=== PATIENT | female | born 1995 | race African-American/Black ===

== ENCOUNTER → 2017-06-15 | Outpatient (CLI) | payer MEDICAID ==
[~2017-06-15] MED LIST: MACR100C2 PO; PREN1CHW7 PO; PREN1MIS11 PO
== END ==
LOC: HPND 10:24
PROVIDERS: ATTEND Obstetrics & Gynecology
DX: O26.892 Other specified pregnancy related conditions, second trimester (principal); R10.31 Right lower quadrant pain; D27.0 Benign neoplasm of right ovary; N94.9 Unspecified condition associated with female genital organs and menstrual cycle; O99.212 Obesity complicating pregnancy, second trimester; E66.9 Obesity, unspecified; Z68.33 Body mass index [BMI] 33.0-33.9, adult; Z3A.18 18 weeks gestation of pregnancy
CPT/HCPCS: 76805

== ENCOUNTER → 2017-07-14 | Outpatient (CLI) | payer MEDICAID | LOC: HPND 12:32 | PROVIDERS: ATTEND Obstetrics & Gynecology | DX: O26.892 Other specified pregnancy related conditions, second trimester (principal); O99.212 Obesity complicating pregnancy, second trimester; E66.9 Obesity, unspecified; Z68.34 Body mass index [BMI] 34.0-34.9, adult | CPT/HCPCS: 76811; 76817 ==

== ENCOUNTER 2017-07-21 08:14 | Inpatient (IN) | payer MEDICAID ==
[~2017-07-21] VITALS: Ht 162.6 cm; Wt 81.6 kg
[2017-07-21] VITALS (29 sets, daily range): BP systolic 88–119; BP diastolic 44–72; PULSE 71–142; RESP 17–18; TEMP 98.2; O2SAT 100
[2017-07-21] MEDS ORDERED: MAGNESIUM SULFATE 40 GM PREMIX 1,000 ML IV SCH (10:25)
[2017-07-21] MEDS ORDERED: BETAMETHASONE SOD PHOS/ACETATE SUSP 30 MG/5 ML VIAL IM SCH (10:30)
[2017-07-21] MEDS ORDERED: ONDANSETRON HCL 4 MG/2 ML VIAL IV PUSH PRN (10:30)
[2017-07-21] MEDS ORDERED: ACETAMINOPHEN 325 MG TAB PO PRN (10:30)
[2017-07-21] MEDS ORDERED: MAGNESIUM SULFATE 4 GM PREMIX 100 ML IV ONE (10:30)
[2017-07-21] MEDS ORDERED: SODIUM CHLORIDE 0.9% FLUSH 10 ML FLUSH IV FLUSH PRN (10:30)
[2017-07-21] MEDS ORDERED: MAGNESIUM SULFATE 4 GM PREMIX 100 ML ONE (10:33)
[2017-07-21] MEDS ORDERED: MAGNESIUM SULFATE 40 GM PREMIX 1,000 ML ONE (10:33)
--- NOTE | 2017-07-21 10:33 | HHI.HP ---
HPI Chief Complaint transfer from [facility] for incompetent cervix Date Seen: Jul 21, 2017 Time Seen: 10:31 Travel History International Travel<30 Days: No Contact w/Intl Traveler<30Days: No History of Present Illness HPI Patient is a 22-year-old female at 23/4 weeks presents as an admission after being seen by [facility] today. Patient was initially referred to [facility] one week ago for obesity and adnexal masses. At that time, patient was found to have a cervix of 20 mm with funneling. Patient was given prescription for progesterone and increased pelvic rest. She returned to [facility] today where patient found to have cervical length of 10 mm. today, patient reports occasional vaginal pressure. No significant pain. Limited taking the progesterone for 2 days. Denies any vaginal bleeding, loss of fluids, contractions. Endorses movement. Patient has a history of a surgical with her last , she thinks around 3-1/2 months. Her first was full term spontaneous vaginal delivery. Otherwise, patient denies any complaints/concerns. No problems during this . [facility] seeing [facility] Weeks Gestation: 23 Para: 1 : 3 : 1 History Past Medical History Narrative Medical Adnexal and ovarian cysts Obstetric History Obstetric History -1st preg: full term vaginal delivery, no complications -2nd preg: surgical at 3.5 months Past Surgical History Narrative Surgical Family History Family History: Negative Social History Alcohol Use: No Tobacco Use: No Substance Abuse: No Allergies-Medications (Allergen,Severity, Reaction): Coded Allergies: No Known Allergies (Verified , 05/25/17) Home Meds Active Scripts Nitrofurantoin Monohydrate Macrocrystals (Macrobid) 100 Mg Cap, 100 MG PO BID for Infection, #14 CAP 0 Refills Prov:Yina Singh 05/25/17 Vit W/ Ferric Phospha (Vitafol Gummies 3.33-0.333-34.8 mg) 1 Chw Chw, 3 TAB PO DAILY, #90 BOTTLE 11 Refills Prov:Dinora Melissa 04/19/17 Reported Medications W/O Vit A W/ Fe Carbo Pack (Citranatal 90 Dha Pack) 90-1 & 300 Mg Pack , 1 EA PO DAILY for Nutritional Supplement, #6 BLISTER 0 Refills 30 day supply. 04/19/17 Review of Systems General / Constitutional: No: Fever, Weight Gain, Chills, Other Eyes: No: Diploplia, Blurred Vision, Visual changes, Pain, Photophobia HENT: No: Headaches, Vertigo, Lightheadedness Cardiovascular: No: Irregular Rhythm, Chest Pain or Discomfort, Palpitations, Tachycardia, Syncope, Varicosities, Edema, Cyanosis Gastrointestinal: No: Nausea, Vomiting, Diarrhea Genitourinary: No: Urgency, Frequency, Dysuria, Decreased Urinary Output, Oliguria Musculoskeletal: No: Limited ROM, Weakness, Cramping, Edema, Pain Skin: No Rash, No Itching, No Dryness, No Lumps, No Change in Pigmentation, No Change in Nails, No Alopecia, No Lesions Neurologic: No: Weakness, Dizziness, Syncope, Focal Abnormalities, Coordination Problem, Headache, Slurred Speech, Seizures Psychiatric: No: Depression, Suicidal Ideations, Homicidal Ideation Endocrine: No: Heat Intolerance, Cold Intolerance, Polydipsia, Polyuria, Other Physical Exam Narrative GENERAL: Well-nourished, well-developed patient. SKIN: Warm and dry. HEAD: Normocephalic and atraumatic. EYES: No scleral icterus. No injection or drainage. ENT: No nasal drainage noted. Mucous membranes pink. Airway patent. NECK: Supple, trachea midline. No JVD. CARDIOVASCULAR: Regular rate and rhythm without murmurs, gallops, or rubs. RESPIRATORY: Breath sounds equal bilaterally. No accessory muscle use. ABDOMEN/GI: Abdomen soft, non-tender, bowel sounds present, no rebound, no guarding Gravid to 23 weeks size GENITOURINARY: FHT's: Category: 1 Baseline: 130 Reactive: yes Variability: moderate Decels: none EXTREMITIES: No cyanosis or edema. BACK: Nontender without obvious deformity. No CVA tenderness. NEUROLOGICAL: Awake and alert. Motor and sensory grossly within normal limits. Five out of 5 muscle strength in all muscle groups. Normal speech. Caprini VTE Risk Assessment Caprini VTE Risk Assessment: No/Low Risk (score <= 1) Caprini Risk Assessment Model Point Value = 1 Point Value = 2 Point Value = 3 Point Value = 5 Age 41-60 Minor surgery BMI > 25 kg/m2 Swollen legs Varicose veins or History of unexplained or recurrent spontaneous Oral contraceptives or hormone replacement Sepsis (< 1 month) Serious lung disease, including pneumonia (< 1 month) Abnormal pulmonary function Acute myocardial infarction Congestive heart failure (< 1 month) History of inflammatory bowel disease Medical patient at bed rest Age 61-74 Arthroscopic surgery Major open surgery (> 45 min) Laparoscopic surgery (> 45 min) Malignancy Confined to bed (> 72 hours) Immobilizing plaster cast Central venous access Age >= 75 History of VTE Family history of VTE Factor V Leiden Prothrombin [id number] Lupus anticoagulant Anticardiolipin antibodies Elevated serum homocysteine Heparin-induced thrombocytopenia Other congenital or acquired thrombophilia Stroke (< 1 month) Elective arthroplasty Hip, pelvis, or leg fracture Acute spinal cord injury (< 1 month) Prophylaxis Regimen Total Risk Factor Score Risk Level Prophylaxis Regimen 0-1 Low Early ambulation 2 Moderate Order ONE of the following: *Sequential Compression Device (SCD) *Heparin 5000 units SQ BID 3-4 Higher Order ONE of the following medications: *Heparin 5000 units SQ TID *Enoxaparin/Lovenox 40 mg SQ daily (WT < 150 kg, CrCl > 30 mL/min) *Enoxaparin/Lovenox 30 mg SQ daily (WT < 150 kg, CrCl > 10-29 mL/min) *Enoxaparin/Lovenox 30 mg SQ BID (WT < 150 kg, CrCl > 30 mL/min) AND/OR *Sequential Compression Device (SCD) 5 or more Highest Order ONE of the following medications: *Heparin 5000 units SQ TID (Preferred with Epidurals) *Enoxaparin/Lovenox 40 mg SQ daily (WT < 150 kg, CrCl > 30 mL/min) *Enoxaparin/Lovenox 30 mg SQ daily (WT < 150 kg, CrCl > 10-29 mL/min) *Enoxaparin/Lovenox 30 mg SQ BID (WT < 150 kg, CrCl > 30 mL/min) AND *Sequential Compression Device (SCD) Data Data Vital Signs Reviewed: Yes Orders Orders Us Ob Limited W/Transvaginal (07/21/17 ) Assessment/Plan Assessment and Plan 22 y/o at 23/4 weeks with incompetent cervix. Ultrasound performed today shows cervical length of 10mm. Pt seen by MFM consult today. Pt recommended for admission. Category 1 FHT, no contractions -Admit to inpatient -Continuous FHT -Bed rest -CBC, CMP, UA -IV steroids to promote lung maturity -IV Mg sulfate for neuroprotection/tocolysis -GBS prophylaxis with Pencillin -Will need to be transferred to [facility], for higher level of care sdw Dr. Alfred Araujo,Randall Hernandez MD, R2 Jul 21, 2017 10:33
[2017-07-21 11:02] LABS: BLOOD, URINE NEG (NEG); COMMENT (UR) CULT NOT INDICATED; CULTURE IF INDICATED CULT NOT INDICATED; GLUCOSE,URINE NEG (NEG); KETONE, URINE NEG (NEG); NITRITE,URINE NEG (NEG); PH, URINE 7.5 (5.0-8.5); SQUAMOUS EPITHELIAL CELL URINE <1 /hpf (0-5); URINE COLOR LIGHT-YELLOW (YELLW/STRAW)
[2017-07-21 11:54] LABS: AUTOMATED NEUTROPHIL # 9.8 TH/MM3 (1.8-7.7); BASOPHIL % 0.3 % (0.0-2.0); EOSINOPHIL # 0.1 TH/MM3 (0-0.4); EOSINOPHIL % 0.9 % (0.0-4.0); HEMATOCRIT 34.8 % (35.0-46.0); HEMO FLAGS AUTO DIFF; LYMPH % 11.4 % (9.0-44.0); LYMPHOCYTE # 1.4 TH/MM3 (1.0-4.8); MEAN CELL VOLUME 88.2 FL (80.0-100.0); MEAN CORPUSCULAR HEMOGLOBIN 28.4 PG (27.0-34.0); MEAN CORPUSCULAR HGB CONC 32.2 % (32.0-36.0); MONO % 7.5 % (0.0-8.0); NEUT % 79.9 % (16.0-70.0); PLATELET COUNT 194 TH/MM3 (150-450); RED BLOOD COUNT 3.94 MIL/MM3 (4.00-5.30); RED CELL DISTRIBUTION WIDTH 14.4 % (11.6-17.2); WHITE BLOOD COUNT 12.3 TH/MM3 (4.0-11.0)
[2017-07-21 12:18] LABS: ALKALINE PHOSPHATASE 106 U/L (45-117); TOTAL BILIRUBIN ADULT 0.3 MG/DL (0.2-1.0)
[2017-07-21 12:28] LABS: ALT (GPT) 9 U/L (10-53); ANION GAP 5 MEQ/L (5-15); AST (GOT) 25 U/L (15-37); BICARBONATE 24.8 MEQ/L (21.0-32.0); BLOOD UREA NITROGEN 4 MG/DL (7-18); CHLORIDE 107 MEQ/L (98-107); GLOMERULAR FILTRATION RATE 173 ML/MIN (>89); POTASSIUM 4.3 MEQ/L (3.5-5.1); SODIUM (NA) 137 MEQ/L (136-145)
[2017-07-21 12:51] LABS: PLATELET ESTIMATE SMEAR NORMAL (NORMAL); PLATELET MORPHOLOGY NORMAL (NORMAL); SCAN/DIFF AUTO DIFF CONFIRMED
--- NOTE | 2017-07-21 13:04 | HHI.HP ---
History & Physical H&P OB attending note This patient is a 22-year-old black female A1 now at 23 weeks 4 days who [facility] and was seen by Dr. Robles in recently, patient being followed for short cervix. Patient's only risk factors that she had is her second and a elective at somewhere between 16 and 20 weeks and during that process rupture the cervix was mechanically or chemically dilated several centimeters to relatively evacuate that the fetus and in doing that and damage to the cervical stroma to the point that now she has a weakened cervix. She was seen a week ago by maternal medicine at that time cervical length was 20 mm, she was given a prescription for progesterone but never filled it and is returned today a week later and the ultrasound shows 10 mm cervix with funneling and small parts down in the funneled cervix, baby in a breech presentation at approximately 500 g. She was seen by maternal medicine today. Who recommended that she be admitted the hospital started on IV magnesium for neuro protection and tocolysis, was given steroid shot of Celestone in the usual protocol ,and GBS antibiotic prophylaxis. Once stable to be transferred to [facility] I discussed the patient's care with maternal medicine in [facility] who accepted transfer Rich Simon II, MD Jul 21, 2017 13:04
[2017-07-21] MEDS ORDERED: PENICILLIN G POTASSIUM INJ 5,000,000 UNITS in SODIUM CHLORIDE 0.9% INJ 100 ML IV ONE (13:15)
--- NOTE | 2017-07-21 14:42 | MB ---
cc: LIVIA SIMON MD, EDGARD DATE OF CONSULTATION: 07/21/2017 DATE OF : 1995 INDICATION 1. Intrauterine at 23 and 4/7 weeks gestation. 2. History of short cervix. 3. History of an elective at 20-week gestation in March of 2016. 4. Bilateral adnexal masses. HISTORY OF PRESENT ILLNESS This is the case of a 22-year-old -[place] female, G3, P1, 0-1-1, currently at 23 and 4/7 weeks gestation with an estimated delivery November 13, 2017. The patient has been previously seen at [facility] for ultrasound on July 14, 2017 at 22 and 4/7 weeks gestation. At the time biometry was consistent with her gestational age with an estimated weight of 483 grams (1 pound 1 ounce). Her anatomic survey failed to reveal any gross anomalies, heart rate was 138 beats per minute. At the time right ovarian mass that had been previously documented was noted again. Transvaginal cervical length measured 20 to 15 mm with funneling. At the time it was recommended to start Progesterone and reevaluate the cervical length in one week. The patient presented today to the ultrasound unit for limited transvaginal cervical length assessment. On ultrasound a closed cervix of 10 mm was documented with dynamic funneling of the membranes. The patient denied leakage of fluid, vaginal bleeding or spotting. She relates occasional on and off contractions or menstrual cramps. She denied burning on urination, denied frequency. PAST MEDICAL HISTORY Negative for hypertension, diabetes, liver, kidney or thyroid problems. Denied history of thromboembolic event, blood transfusions or any particular blood disorders. FAMILY HISTORY Noncontributory. OBSTETRICAL HISTORY Significant for a prior for the first in 2014 that ended with a vaginal delivery without complications. The second as she stated ended with an elective at around 20-weeks gestation. This information has not been previously provided. Denied any history of sexually transmitted diseases. records were not available for review. PHYSICAL EXAMINATION GENERAL: The patient is alert, oriented, in no acute distress. HEART: Regular rhythm. No murmurs, rubs or gallops. LUNGS: Clear. ABDOMEN: Gravid, soft, depressible, nontender. No suprapubic tenderness. No costovertebral angle tenderness. PELVIC: Digital exam cervix is closed, fingertip, part floating. ASSESSMENT I presented to Mrs. Ayon recent real-time ultrasound images the finding of dynamic cervical shortening. I explained that given her history of a prior elective termination of at 20-weeks, she probably has cervical insufficiency. However, at the present time she is presenting with what appeared to be contractions, she is not considered a candidate for a cervical cerclage at this time. I contacted Dr. Miguel Bunn who is her heel washer stringing machine operator that follows at the clinic and at the time he stated that if the patient needs to be admitted, need to contact the OB hospitalist covering at [facility]. I discussed the case with Dr. Simon, as well presented to him the findings of short cervix with dynamic changes on ultrasound images. At this time I explained to him and the patient the need to admit the patient given her increased risk for a very delivery at the very early gestational age. I explained the significant increased risk for her for a very delivery and/or premature rupture of membranes followed by a very delivery. RECOMMENDATIONS 1. Admit the patient to Labor and Delivery at [facility]. 2. Continue heart rate monitoring and tocometer to evaluate for contractions. 3. Initiate intravenous magnesium sulfate as per protocol for neuroprotection with 4 gram bolus followed by 2 grams an hour. 4. Initiate steroids for lung maturation enhancement with Celestone 12 mg IM now and repeat a second dose in 24-hours. 5. Initiate group B strep prophylaxis with antibiotics as per protocol. 6. Neonatology consult. 7. In view of the patient's very gestational age, once the patient is stabilized, consider transfer to a level 3 hospital with level [address] N[address] Simon will proceed to admit the patient and initiate plan of management and recommendations. Shay DELANEY /11:26 AM /2:55 PM
[2017-07-21] MEDS ORDERED: PENICILLIN G POTASSIUM INJ 2,500,000 UNITS in SODIUM CHLORIDE 0.9% INJ 100 ML IV SCH (17:00)
[2017-07-21] MEDS ORDERED: SODIUM CHLORIDE 0.9% FLUSH 10 ML FLUSH IV FLUSH SCH (21:00)
[2017-08-02] MEDS ORDERED: PREN1CHW7 PO (15:26)
== END 2017-07-21 14:50 | disposition short-term general hospital (02) | DRG 782 ==
LOC: HPND 08:14 → H2EA 09:32 → OBSVTOIN 09:32
PROVIDERS: ADMIT Obstetrics & Gynecology Maternal & Fetal Medicine; ATTEND Obstetrics & Gynecology Maternal & Fetal Medicine
DX: O34.32 Maternal care for cervical incompetence, second trimester (principal); N83.9 Noninflammatory disorder of ovary, fallopian tube and broad ligament, unspecified; O99.212 Obesity complicating pregnancy, second trimester; O26.872 Cervical shortening, second trimester; Z3A.23 23 weeks gestation of pregnancy
CPT/HCPCS: 76815; 76817; 76937; 80053; 81001; 85025; J0702; J2540; J3475

== ENCOUNTER 2017-10-31 20:48 | Emergency (ER) | payer MEDICAID ==
[~2017-10-31] VITALS: Ht 157.5 cm; Wt 94.8 kg
[~2017-10-31 20:48] MED LIST changes: -MACR100C2 PO; +METR1TAB76 PO; +TERC0.4C2 VAGINAL
--- NOTE | 2017-10-31 21:50 | PD ---
HPI Chief Complaint Contractions Date Seen: Oct 31, 2017 Time Seen: 21:42 Travel History International Travel<30 Days: No Contact w/Intl Traveler<30Days: No Known Affected Area: No History of Present Illness HPI 22-year-old 3 para 1 at 38 weeks gestation who comes tonight for concern of contractions. She has been on bedrest since 23 weeks when she was admitted at [facility] for shortened cervix. She denies leakage of fluid or bleeding. She describes her contractions as mild and irregular. History Past Medical History Narrative Medical Obesity Obstetric History Obstetric History 1 term vaginal delivery One midterm elective This she has been enrolled at [facility] Past Surgical History Narrative Surgical Elective Family History Family History: Negative Social History Alcohol Use: No Tobacco Use: No Substance Abuse: No Allergies-Medications (Allergen,Severity, Reaction): Coded Allergies: No Known Allergies (Verified Adverse Reaction, Unknown, 10/31/17) Home Meds Discontinued Reported Medications W/O Vit A W/ Fe Carbo Pack (Citranatal 90 Dha Pack) 90-1 & 300 Mg Pack , 1 EA PO DAILY for Nutritional Supplement, #6 BLISTER 0 Refills 30 day supply. 04/19/17 Discontinued Scripts Terconazole Vaginal Cream (Terconazole Vaginal Cream) 0.4 % Cream, 1 APPL VAGINAL HS for Fungal Infection, #45 GM 0 Refills For seven days Prov:Dinora Melissa 09/20/17 Metronidazole (Metronidazole) 500 Mg Tab, 500 MG PO BID for Infection, #14 TAB 0 Refills Prov:Dinora Melissa 09/13/17 Vit W/ Ferric Phospha (Vitafol Gummies 3.33-0.333-34.8 mg) 1 Chw Chw, 3 TAB PO DAILY for MDD 1, #90 BOTTLE 11 Refills Prov:Miguel Bunn MD 08/02/17 Review of Systems Except as stated in HPI: all other systems reviewed are Neg Physical Exam Narrative GENERAL: Well-nourished, well-developed patient. SKIN: Warm and dry. HEAD: Normocephalic and atraumatic. EYES: No scleral icterus. No injection or drainage. ENT: No nasal drainage noted. Mucous membranes pink. Airway patent. NECK: Supple, trachea midline. No JVD. CARDIOVASCULAR: Regular rate and rhythm without murmurs, gallops, or rubs. RESPIRATORY: Breath sounds equal bilaterally. No accessory muscle use. ABDOMEN/GI: Abdomen soft, non-tender, bowel sounds present, no rebound, no guarding Gravid to [-] weeks size Fundal Height: [38-] GENITOURINARY: External Genitalia: intact and normal in appearance BUS glands: [-neg negative] Cervix: [-] Dilatation: [-Fingertip] Effacement: [-80] Station: [--3] Presentation: [Vertex-] Membranes: [intact ] Uterine Contractions: [Mild 3-6-] FHT's: Category: [1-] Baseline: [-] Reactive: [Yes-] Variability: [-] Decels: [-] EXTREMITIES: No cyanosis or edema. BACK: Nontender without obvious deformity. No CVA tenderness. NEUROLOGICAL: Awake and alert. Motor and sensory grossly within normal limits. Five out of 5 muscle strength in all muscle groups. Normal speech. Data Data Vital Signs Reviewed: Yes Group B Strep: Negative MDM Medical Record Reviewed: Yes Narrative Course / MDM Assessment: 38 week intrauterine not in labor Plan: Labor precautions were reviewed with the patient. Follow-up for care visit. Diagnosis Diagnosis: Primary Impression: 38 weeks gestation of Additional Impression: Irregular contractions Disposition: 01 DISCHARGE HOME Condition: Good Patient Instructions: General Instructions, Movement (ED) Additional Instructions: RETURN TO ER FOR REGULAR CONTRACTIONS, BLEEDING, LEAKING OF FLUIDS, DECREASED MOVEMENT Departure Forms: Tests/Procedures Vernon Hutson MD Oct 31, 2017 21:50
== END 2017-10-31 21:49 | disposition home or self-care (01) ==
LOC: HOBED 20:48
DX: O47.1 False labor at or after 37 completed weeks of gestation (principal); O99.213 Obesity complicating pregnancy, third trimester; Z3A.38 38 weeks gestation of pregnancy; Z79.899 Other long term (current) drug therapy
CPT/HCPCS: 59025

== ENCOUNTER 2017-11-08 11:30 | Inpatient (IN) | payer MEDICAID ==
[2017-11-08] VITALS (90 sets, daily range): BP systolic 71–147; BP diastolic 28–117; PULSE 62–118; RESP 16–20; TEMP 98–98.5
[2017-11-08] MEDS ORDERED: LACTATED RINGER'S 1000 ML INJ 1,000 ML IV PRN (12:06)
[2017-11-08] MEDS ORDERED: LACTATED RINGER'S 1000 ML INJ 1,000 ML IV SCH (12:06)
[2017-11-08] MEDS ORDERED: SODIUM CHLORID 0.9% 500 ML INJ 500 ML IV PRN (12:15)
[2017-11-08] MEDS ORDERED: MINERAL OIL 10 ML VIAL TOPICAL PRN (12:15)
[2017-11-08] MEDS ORDERED: LIDOCAINE HCL 1% 50 ML VIAL I-DERMAL PRN (12:15)
[2017-11-08] MEDS ORDERED: LIDOCAINE HCL 1% 50 ML VIAL INFIL PRN (12:15)
[2017-11-08] MEDS ORDERED: ONDANSETRON HCL 4 MG/2 ML VIAL IV PUSH PRN (12:15)
[2017-11-08] MEDS ORDERED: OXYTOCIN 30 UNITS-500ML PREMIX 500 ML IV ONE (12:15)
[2017-11-08] MEDS ORDERED: CITRIC ACID-SODIUM CITRATE LIQ 30 ML UDC PO SCH (12:15)
[2017-11-08] MEDS ORDERED: SODIUM CHLOR 0.9% 1000 ML INJ 1,000 ML IV PRN (12:26)
--- NOTE | 2017-11-08 12:32 | HHI.HP ---
History & Physical H&P HPI Chief Complaint Contractions and leaking fluid Date Seen: Nov 08, 2017 Travel History International Travel<30 Days: No Contact w/Intl Traveler<30Days: No History of Present Illness HPI Patient is a 22 year old at 39-2/7 weeks gestation who presents today for contractions and leaking fluid. She was evaluated by her OB this morning and her cervix was 5cm dilated. She then started having leaking fluid and contractions that are increasing in frequency since 11 this morning. She has has a small amount of vaginal bleeding. Positive movement. History Past Medical History Medical History: Denies Significant Hx Obstetric History Obstetric History 05/03/15 at 38 weeks gestation, 8lbs 11oz Elective by D&C at 20 weeks in 2015 Past Surgical History Narrative Surgical D&C Family History Family History: Negative Social History Alcohol Use: No Tobacco Use: No Substance Abuse: No Allergies-Medications (Allergen,Severity, Reaction): Coded Allergies: No Known Allergies (Verified Adverse Reaction, Unknown, 10/31/17) Home Meds No Active Prescriptions or Reported Meds Review of Systems Except as stated in HPI: all other systems reviewed are Neg General / Constitutional: No: Fever, Chills Eyes: No: Blurred Vision, Visual changes HENT: No: Headaches Cardiovascular: No: Chest Pain or Discomfort, Palpitations Respiratory: No: Cough, Short of Breath Gastrointestinal: No: Nausea, Vomiting Genitourinary: Pelvic Pain, Discharge, Vaginal Bleeding, No: Dysuria, Hematuria Musculoskeletal: No: Edema Physical Exam Narrative GENERAL: Well-nourished, well-developed patient. SKIN: Warm and dry. HEAD: Normocephalic and atraumatic. EYES: No scleral icterus. No injection or drainage. ENT: No nasal drainage noted. Mucous membranes pink. Airway patent. NECK: Supple, trachea midline. No JVD. CARDIOVASCULAR: Regular rate and rhythm without murmurs, gallops, or rubs. RESPIRATORY: Breath sounds equal bilaterally. No accessory muscle use. ABDOMEN/GI: Abdomen soft, non-tender, bowel sounds present, no rebound, no guarding Gravid to 39 weeks size GENITOURINARY: External Genitalia: intact and normal in appearance BUS glands: normal Cervix: posterior Dilatation: 6 Effacement: 70 Station: -2 Presentation: vertex Membranes: intact Uterine Contractions: q2-3h FHT's: Category: I Baseline: 150 Reactive: + Variability: moderate Decels: none EXTREMITIES: No cyanosis or edema. BACK: Nontender without obvious deformity. NEUROLOGICAL: Awake and alert. Motor and sensory grossly within normal limits. Normal speech. Data Data Vital Signs Reviewed: Yes Orders Orders Vital Signs (Adult) .ON ADMISSION (11/08/17 12:01) ^ Labor Status (11/08/17 12:01) Heart (11/08/17 12:01) ^ Non Stress Test (11/08/17 12:01) Pamg-1 Test .ONCE (11/08/17 12:01) Admit To Inpatient (11/08/17 ) Code Status (11/08/17 12:06) Vital Signs (Adult) .Per protocol (11/08/17 12:06) Activity Oob Ad Pau (11/08/17 12:06) Heart (11/08/17 12:06) Amnioinfusion (11/08/17 12:06) Urinary Catheter Management .ONCE (11/08/17 12:06) Diet Liquid (11/08/17 Lunch) Lactated Ringer's 1000 Ml Inj (Lr 1000 M (11/08/17 12:06) Lactated Ringer's 1000 Ml Inj (Lr 1000 M (11/08/17 12:06) Sodium Chlorid 0.9% 500 Ml Inj (Ns 500 M (11/08/17 12:15) Sodium Chlor 0.9% 1000 Ml Inj (Ns 1000 M (11/08/17 12:26) Lidocaine 1% Inj (50 Ml) (Xylocaine 1% I (11/08/17 12:15) Citric Acid-Sodium Citrate Liq (Bicitra (11/08/17 12:15) Ondansetron Inj (Zofran Inj) (11/08/17 12:15) Fentanyl Inj (Fentanyl Inj) (11/08/17 12:15) Fentanyl Inj (Fentanyl Inj) (11/08/17 12:15) Complete Blood Count With Diff (11/08/17 12:06) Hold Clot (11/08/17 12:06) Abo/Rh Blood Type (11/08/17 12:06) Urinalysis - C+S If Indicated (11/08/17 12:06) Drug Screen, Random Urine (11/08/17 12:06) Resp Oxygen Non Rebreathe Mask (11/08/17 ) ^ Epidural / Intrathecal Infus (11/08/17 12:06) Oxytocin 30 Units-500ml Premix (Pitocin (11/08/17 12:15) Lidocaine 1% Inj (50 Ml) (Xylocaine 1% I (11/08/17 12:15) Light Mineral Oil (Muri-Lube Oil) (11/08/17 12:15) Inpatient Certification (11/08/17 ) MDM Medical Record Reviewed: Yes Narrative Course / MDM 22 year old at 39-2/7 weeks gestation. 1. IUP- Category I tracing, reassuring. 2. Labor- Admit for labor. Expectant management. 3. GBS unknown 4. No labs- will obtain labs 5. History of chlamydia during this , treated. Will obtain repeat GC and chlamydia. dw Dr. Simon Scripts No Active Prescriptions or Reported Meds Jaimee Kerr MD, R3 Nov 08, 2017 12:32
[2017-11-08] MEDS ORDERED: fentaNYL 2MCG-BUPIV 0.125% INJ 100 ML ONE (13:20)
[2017-11-08 13:23] LABS: BACTERIA, URINE RARE /hpf; BILIRUBIN, URINE NEG (NEG); BLOOD, URINE MOD (NEG); GLUCOSE,URINE NEG (NEG); KETONE, URINE NEG (NEG); MUCUS URINE FEW /lpf (OCC); NITRITE,URINE NEG (NEG); SQUAMOUS EPITHELIAL CELL URINE 4 /hpf (0-5); URINE COLOR YELLOW (YELLW/STRAW); URINE LEUKOCYTE ESTERASE LARGE (NEG)
[2017-11-08 13:24] LABS: BASOPHIL # 0.1 TH/MM3 (0-0.2); BASOPHIL % 0.4 % (0.0-2.0); EOSINOPHIL # 0.1 TH/MM3 (0-0.4); EOSINOPHIL % 1.1 % (0.0-4.0); HEMATOCRIT 33.7 % (35.0-46.0); HEMOGLOBIN 10.9 GM/DL (11.6-15.3); LYMPH % 11.1 % (9.0-44.0); LYMPHOCYTE # 1.5 TH/MM3 (1.0-4.8); MEAN CELL VOLUME 81.9 FL (80.0-100.0); MEAN CORPUSCULAR HEMOGLOBIN 26.4 PG (27.0-34.0); MEAN CORPUSCULAR HGB CONC 32.3 % (32.0-36.0); MEAN PLATELET VOLUME 8.7 FL (7.0-11.0); MONO % 7.1 % (0.0-8.0); NEUT % 80.3 % (16.0-70.0); PLATELET COUNT 171 TH/MM3 (150-450); RED BLOOD COUNT 4.11 MIL/MM3 (4.00-5.30); RED CELL DISTRIBUTION WIDTH 16.2 % (11.6-17.2); WHITE BLOOD COUNT 13.6 TH/MM3 (4.0-11.0)
[2017-11-08 14:10] LABS: BANDS 3 % (0-6); CORRECTED NUCLEATED RBC 1 /100 WBC (0-0); LYMPHOCYTES 6 % (9-44); METAMYELOCYTES 1 % (0-1); MONOCYTES 14 % (0-8); NEUTROPHIL # MANUAL DIFF 10.7 TH/MM3 (1.8-7.7); NUCLEATED RED BLOOD CELL 1 (0-0); POLYS (SEG NEUTROPHILS) 75 % (16-70)
--- NOTE | 2017-11-08 14:14 | PD.LABORPN ---
Subjective Subjective Patient is feeling painful contractions. She is requesting an epidural. Objective Vital Signs Vital Signs Date Time Temp Pulse Resp B/P (MAP) Pulse Ox O2 Delivery O2 Flow Rate FiO2 11/08/17 12:55 78 11/08/17 12:50 77 11/08/17 12:45 82 11/08/17 12:42 70 105/64 (78) 11/08/17 12:40 89 11/08/17 12:35 83 11/08/17 12:10 85 11/08/17 12:05 88 11/08/17 12:00 96 11/08/17 11:55 87 Objective Pelvic Exam: Cervix: midposition Dilatation: 8 Effacement: 100 Station: -1 Presentation: vertex Membranes: AROM, clear fluid Uterine Contractions: q2-3min FHT's: Category: I Baseline: 140 Reactive: + Variability: moderate Decels: none Assessment/Plan Assessment and Plan 22 year old at 39-2/7 weeks gestation. 1. IUP- Category I tracing, reassuring. 2. Labor- Cervical change noted. AROM with clear fluid. Expectant management. 3. GBS unknown 4. No labs- will obtain labs 5. History of chlamydia during this , treated. Will obtain repeat GC and chlamydia. 6. Epidural for pain control. 7. Anticipate vaginal delivery. dw Jaimee Correa MD, R3 Nov 08, 2017 14:14
[2017-11-08] MEDS ORDERED: ePHEDrine/NS 25 MG/5 ML SYRINGE ONE ×3 (14:33→14:52)
[2017-11-08] MEDS ORDERED: MEASLES, MUMPS, RUBELLA VACCINE 0.5 ML VIAL SQ ONE (16:00)
[2017-11-08] MEDS ORDERED: DIPHTH/TETANUS/ACEL PERTUSSIS (BOOSTER) 0.5 ML VIAL/PFS IM ONE (16:00)
[2017-11-08] MEDS ORDERED: OXYTOCIN 30 UNITS-500ML PREMIX 500 ML IV PRN (16:00)
[2017-11-08] MEDS ORDERED: fentaNYL 2MCG-BUPIV 0.125% 100 ML EPIDURAL SCH (16:15)
[2017-11-08] MEDS ORDERED: NO SYSTEM NARCOTICS PRN (16:15)
[2017-11-08] MEDS ORDERED: DO NOT ADMINISTER ANTICOAGULANTS PRN (16:15)
[2017-11-08] MEDS ORDERED: ePHEDrine/NS 25 MG/5 ML SYRINGE IV PUSH PRN (16:15)
[2017-11-08] MEDS ORDERED: LIDOCAINE HCL 1% 20 ML VIAL ONE (18:16)
--- NOTE | 2017-11-08 18:43 | PD.OB.DELI ---
Weeks gestation: 39 Pt started active labor?: Yes Medical induction of labor?: No Artificial rupture of membrane: Yes Artificial ROM date: Nov 08, 2017 Anesthesia: Epidural Episiotomy: Midline Vaginal Delivery: Normal Presentation: Occiput anterior Nuchal Cord: None Delayed cord clamping (45 sec): No Shoulder Dystocia: Suprapubic pressure given, Anthony maneuver done, Other ( episiotomy performed to allow more room for maneuvers) Infant: Female Delivery date: Nov 08, 2017 Delivery time: 18:05 One Minute : 8 Five Minute : 8 Weight: 3500g Placenta: Spontaneous delivery, Intact, 3 vessel cord Laceration: Episiotomy, 2 deg Repair: Chromic running (2-0) Estimated blood loss: 250cc Additional Information During delivery, fetus exhibited turtle sign indicating shoulder dystocia. Anthony maneuver done and suprapubic pressure applied without delivery of the anterior shoulder. Episiotomy performed, suprapubic pressure again applied and anterior shoulder was delivered with gentle downward traction of the head. Shoulder dystocia lasted for approximately 20 seconds. Second degree episiotomy laceration repaired with 2-0 chromic running suture. Hemostasis was achieved without complication. EBL 250cc. Mother and baby doing well post delivery. Cord pH 7.28. Supervised by Jaimee Correa MD, R3 Nov 08, 2017 18:43
[2017-11-08] MEDS ORDERED: WITCH HAZEL 50%/GLYCERIN 12.5% 40 PAD JAR TOPICAL PRN (18:45)
[2017-11-08] MEDS ORDERED: ALUMINUM/MAGNESIUM/SIMETH 30 ML CUP PO PRN (18:45)
[2017-11-08] MEDS ORDERED: BENZOCAINE 20% TOPICAL SPRAY 60 ML CAN TOPICAL PRN (18:45)
[2017-11-08] MEDS ORDERED: OXYTOCIN 30 UNITS-500ML PREMIX 500 ML IV SCH (18:45)
[2017-11-08] MEDS ORDERED: ZOLPIDEM TARTRATE 5 MG TAB PO PRN (18:45)
[2017-11-08] MEDS ORDERED: ONDANSETRON ODT 4 MG TAB PO PRN (18:45)
[2017-11-08] MEDS ORDERED: oxyCODONE/ACETAMINOPHEN 5 MG/325 MG TAB PO PRN (18:45)
[2017-11-08] MEDS ORDERED: SODIUM CHLORIDE 0.9% FLUSH 10 ML FLUSH IV FLUSH PRN (18:45)
[2017-11-08] MEDS ORDERED: ACETAMINOPHEN 325 MG TAB PO PRN (18:45)
[2017-11-08] MEDS: oxyCODONE/ACETAMINOPHEN 5 MG/325 MG TAB PO PRN (19:25)
[2017-11-08] MEDS: IBUPROFEN 800 MG TAB PO PRN (19:25)
[2017-11-08] MEDS: SODIUM CHLORIDE 0.9% FLUSH 10 ML FLUSH IV FLUSH SCH (21:00)
[2017-11-09] MEDS: oxyCODONE/ACETAMINOPHEN 5 MG/325 MG TAB PO PRN ×3 (03:32→18:11)
[2017-11-09] MEDS: IBUPROFEN 800 MG TAB PO PRN ×2 (03:33→11:45)
--- NOTE | 2017-11-09 08:24 | HHI.OB ---
Subjective Post Day: 1 Remarks Patient is a 22-year-old delivered at 39 weeks and 3 days. Patient is day 1 after vaginal delivery. Patient's pain is well-controlled. Patient reports minimal bleeding. Patient reports eating and drinking without any nausea or vomiting. Patient has passed gas but has not had a bowel movement. Patient denies chest pain and shortness of breath. Patient has been ambulating; she denies lower extremity pain. 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 Patient has decided to formula feed. Objective Vitals/I&O Vital Signs Date Time Temp Pulse Resp B/P (MAP) Pulse Ox O2 Delivery O2 Flow Rate FiO2 11/08/17 21:25 98.0 86 18 101/59 (73) 11/08/17 20:25 16 11/08/17 20:15 101 112/67 (82) 11/08/17 20:00 102 119/68 (85) 11/08/17 19:51 18 11/08/17 19:45 96 115/71 (86) 11/08/17 19:30 101 116/65 (82) 11/08/17 19:20 107 102/70 (81) 11/08/17 19:10 103 92/62 (72) 11/08/17 19:01 103 101/72 (82) 11/08/17 18:46 18 11/08/17 18:45 114 109/60 (76) 11/08/17 18:36 118 123/98 (106) 11/08/17 18:30 98.3 11/08/17 18:30 112 20 140/80 (100) 11/08/17 17:55 100 11/08/17 17:55 102 11/08/17 17:50 95 11/08/17 17:50 95 11/08/17 17:45 96 11/08/17 17:45 107 120/66 (84) 11/08/17 17:45 104 11/08/17 17:40 94 11/08/17 17:40 96 11/08/17 17:35 95 11/08/17 17:35 97 11/08/17 17:30 90 11/08/17 17:30 93 113/67 (82) 11/08/17 17:30 90 11/08/17 17:28 98.5 20 11/08/17 17:25 83 18 17:25 83 11/08/17 17:20 88 11/08/17 17:20 87 11/08/17 17:15 86 116/76 (89) 11/08/17 17:15 84 11/08/17 17:15 107 11/08/17 17:10 90 11/08/17 17:10 92 11/08/17 17:05 87 11/08/17 17:05 86 11/08/17 17:00 96 11/08/17 17:00 98 11/08/17 17:00 95 105/60 (75) 11/08/17 16:55 86 11/08/17 16:55 86 11/08/17 16:50 84 11/08/17 16:50 84 11/08/17 16:46 90 106/55 (72) 11/08/17 16:45 90 11/08/17 16:45 90 11/08/17 16:40 82 11/08/17 16:40 79 11/08/17 16:35 86 11/08/17 16:35 85 11/08/17 16:31 92 147/117 (127) 11/08/17 16:30 86 11/08/17 16:30 86 11/08/17 16:25 75 11/08/17 16:25 76 11/08/17 16:20 84 11/08/17 16:20 80 11/08/17 16:15 78 120/60 (80) 11/08/17 16:15 75 11/08/17 16:15 80 11/08/17 16:00 81 112/61 (78) 11/08/17 16:00 20 11/08/17 16:00 89 11/08/17 16:00 93 11/08/17 16:00 98.2 11/08/17 15:55 78 11/08/17 15:55 84 11/08/17 15:50 81 11/08/17 15:50 84 11/08/17 15:45 80 119/62 (81) 11/08/17 15:45 81 11/08/17 15:45 74 11/08/17 15:30 105 11/08/17 15:30 92 11/08/17 15:30 99 116/59 (78) 11/08/17 15:25 69 11/08/17 15:25 74 11/08/17 15:20 88 11/08/17 15:20 82 113/61 (78) 11/08/17 15:20 75 11/08/17 15:15 88 11/08/17 15:15 66 110/62 (78) 11/08/17 15:15 65 11/08/17 15:10 63 11/08/17 15:10 67 11/08/17 15:10 62 111/59 (76) 11/08/17 15:05 106 106/49 (68) 11/08/17 15:05 70 11/08/17 15:05 108 11/08/17 15:00 101 11/08/17 15:00 68 11/08/17 15:00 99 106/47 (66) 11/08/17 14:55 94 92/46 (61) 11/08/17 14:55 89 11/08/17 14:55 92 11/08/17 14:51 94 92/43 (59) 11/08/17 14:50 85 11/08/17 14:50 89 84/36 (52) 11/08/17 14:50 86 11/08/17 14:46 72 72/35 (47) 11/08/17 14:45 73 11/08/17 14:45 69 11/08/17 14:42 108 71/34 (46) 11/08/17 14:40 96 11/08/17 14:40 98 90/28 (48) 11/08/17 14:40 89 11/08/17 14:35 107 11/08/17 14:35 81 95/52 (66) 11/08/17 14:35 96 11/08/17 14:34 67 98/58 (71) 11/08/17 14:30 101 11/08/17 14:30 102 11/08/17 14:30 97 89/42 (58) 11/08/17 14:29 93 105/56 (72) 11/08/17 14:26 92 93/49 (64) 11/08/17 14:25 81 11/08/17 14:25 78 11/08/17 14:24 98/51 (67) 11/08/17 14:24 79 11/08/17 14:23 86 103/50 (67) 11/08/17 14:20 76 11/08/17 14:20 77 11/08/17 14:15 84 128/78 (95) 11/08/17 14:15 82 11/08/17 14:10 78 11/08/17 14:00 63 11/08/17 13:55 63 11/08/17 13:50 68 11/08/17 13:45 66 11/08/17 13:40 65 11/08/17 13:35 71 11/08/17 13:30 69 11/08/17 13:25 81 11/08/17 13:20 73 11/08/17 13:15 73 11/08/17 13:10 66 11/08/17 13:05 68 11/08/17 13:00 76 11/08/17 12:55 78 11/08/17 12:50 77 11/08/17 12:45 82 11/08/17 12:42 70 105/64 (78) 11/08/17 12:40 89 11/08/17 12:35 83 11/08/17 12:10 85 11/08/17 12:05 88 11/08/17 12:00 96 11/08/17 11:55 87 Objective Remarks GENERAL: Well-nourished, well-developed patient. CARDIOVASCULAR: Regular rate and rhythm without murmurs, gallops, or rubs. RESPIRATORY: Breath sounds equal bilaterally. No accessory muscle use. ABDOMEN/GI: Abdomen soft, minimally tender. Fundus: Firm, minimally tender at umbilicus. GENITOURINARY: Light to moderate bleeding. EXTREMITIES: No cyanosis or edema, non-tender, without signs of DVT. Medications and IVs Current Medications Medications (Trade) Dose Ordered Sig/Anitha Route Start Time Stop Time Status Last Admin (NS Flush) 2 ml BID IV FLUSH 11/08/17 21:00 11/08/17 21:00 (NS Flush) 2 ml UNSCH PRN IV FLUSH 11/08/17 18:45 (Tylenol) 650 mg Q4H PRN PO 11/08/17 18:45 (Motrin) 800 mg Q8H PRN PO 11/08/17 18:45 11/09/17 03:33 (Percocet 5-325 Mg) 1 tab Q4H PRN PO 11/08/17 18:45 11/08/17 23:45 (Percocet 5-325 Mg) 2 tab Q4H PRN PO 11/08/17 18:45 11/09/17 03:32 (Americaine 20% Top Spr) 1 spray Q4H PRN TOPICAL 11/08/17 18:45 11/08/17 23:44 (Tucks Pads) 1 applic QID PRN TOPICAL 11/08/17 18:45 11/08/17 23:44 (Ghazala-Colace) 2 tab Q12HR PO 11/08/17 18:45 (Ambien) 5 mg HS PRN PO 11/08/17 18:45 (Mag-Al Plus Susp Liq) 15 ml Q8H PRN PO 11/08/17 18:45 (Zofran Odt) 4 mg Q6H PRN PO 11/08/17 18:45 (Flu (Quadrivalent) Vaccine Inj) 0.5 ml ONCE ONCE IM 11/10/17 10:00 11/10/17 10:01 Assessment/Plan Assessment and Plan Patient is a 22-year-old delivered at 39 weeks and 3 days. Patient is day 1 after vaginal delivery. * Continue routine care. * Motrin and Percocet when necessary for pain. * Encourage OOB. * Pelvic rest for 6 weeks will need follow-up appointment at that time. * Contraception: IUD placement to be discussed at 6 week follow-up. * Anticipate discharge tomorrow. Discussed with OB hospitalist. Corrine Cespedes MD R1 Nov 09, 2017 08:24
[2017-11-09 09:00] VITALS: BP 103/65; PULSE 61; RESP 16; TEMP 97.8
[2017-11-09] MEDS: DOCUSATE SODIUM 50 MG/SENNA 8.6 MG TAB PO SCH (09:36)
[2017-11-09 11:53] LABS: HEPATITIS A AB IGM NEGATIVE (NEGATIVE); HEPATITIS B CORE AB IGM NEGATIVE (NEGATIVE); HEPATITIS B SURFACE ANTIGEN NEGATIVE (NEGATIVE); HEPATITIS C AB IgG NEGATIVE (NEGATIVE)
[2017-11-10] MEDS: IBUPROFEN 800 MG TAB PO PRN ×2 (03:17→11:50)
[2017-11-10] MEDS: oxyCODONE/ACETAMINOPHEN 5 MG/325 MG TAB PO PRN ×2 (03:18→11:50)
[2017-11-10] MEDS: DOCUSATE SODIUM 50 MG/SENNA 8.6 MG TAB PO SCH ×2 (03:19→08:53)
[2017-11-10 08:00] VITALS: BP 94/47; PULSE 68; RESP 14; TEMP 98
--- NOTE | 2017-11-10 08:57 | HHI.OB ---
Subjective Post Day: 2 Remarks Patient is a 22-year-old delivered at 39 weeks and 3 days. Patient is day 2 after vaginal delivery. Patient's pain is well-controlled. Patient reports minimal bleeding. Patient reports eating and drinking without any nausea or vomiting. Patient has passed gas but has not had a bowel movement. Patient denies chest pain and shortness of breath. Patient has been ambulating; she denies lower extremity pain. 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 Patient has decided to formula feed. Objective Vitals/I&O Vital Signs Date Time Temp Pulse Resp B/P (MAP) Pulse Ox O2 Delivery O2 Flow Rate FiO2 11/09/17 09:00 97.8 61 16 103/65 (78) Objective Remarks GENERAL: Well-nourished, well-developed patient. CARDIOVASCULAR: Regular rate and rhythm without murmurs, gallops, or rubs. RESPIRATORY: Breath sounds equal bilaterally. No accessory muscle use. ABDOMEN/GI: Abdomen soft, minimally tender. Positive bowel sounds. Fundus: Firm, minimally tender at umbilicus. GENITOURINARY: Light to moderate bleeding. EXTREMITIES: No cyanosis or edema, non-tender, without signs of DVT. Medications and IVs Current Medications Medications (Trade) Dose Ordered Sig/Anitha Route Start Time Stop Time Status Last Admin (NS Flush) 2 ml BID IV FLUSH 11/08/17 21:00 11/08/17 21:00 (NS Flush) 2 ml UNSCH PRN IV FLUSH 11/08/17 18:45 (Tylenol) 650 mg Q4H PRN PO 11/08/17 18:45 (Motrin) 800 mg Q8H PRN PO 11/08/17 18:45 11/10/17 03:17 (Percocet 5-325 Mg) 1 tab Q4H PRN PO 11/08/17 18:45 11/08/17 23:45 (Percocet 5-325 Mg) 2 tab Q4H PRN PO 11/08/17 18:45 11/10/17 03:18 (Americaine 20% Top Spr) 1 spray Q4H PRN TOPICAL 11/08/17 18:45 11/08/17 23:44 (Tucks Pads) 1 applic QID PRN TOPICAL 11/08/17 18:45 11/08/17 23:44 (Ghazala-Colace) 2 tab Q12HR PO 11/08/17 18:45 11/10/17 03:19 (Ambien) 5 mg HS PRN PO 11/08/17 18:45 (Mag-Al Plus Susp Liq) 15 ml Q8H PRN PO 11/08/17 18:45 (Zofran Odt) 4 mg Q6H PRN PO 11/08/17 18:45 (Flu (Quadrivalent) Vaccine Inj) 0.5 ml ONCE ONCE IM 11/10/17 10:00 11/10/17 10:01 Assessment/Plan Assessment and Plan Patient is a 22-year-old delivered at 39 weeks and 3 days. Patient is day 2 after vaginal delivery. * Continue routine care. * Motrin and Percocet when necessary for pain. * Encourage OOB. * Pelvic rest for 6 weeks will need follow-up appointment at that time. * Contraception: IUD placement to be discussed at 6 week follow-up. * Anticipate discharge today. Discussed with OB hospitalist. Corrine Cespedes MD R1 Nov 10, 2017 08:57
[2017-11-10] MEDS: SODIUM CHLORIDE 0.9% FLUSH 10 ML FLUSH IV FLUSH SCH (09:00)
[2017-11-10] MEDS ORDERED: FERR325T18 PO (09:05)
[2017-11-10] MEDS ORDERED: IBUP1TAB7 PO (09:05)
[2017-11-10] MEDS ORDERED: PREN1TAB30 PO (09:05)
--- NOTE | 2017-11-10 09:06 | HHI.DCPOC ---
Discharge Care Plan Diagnosis: (1) Spontaneous vaginal delivery Your Health Problems Are: Vaginal delivery Report Symptoms to Your Doctor -Temperature above 100.5 degrees -Redness, of incision or excessive or foul smelling drainage -Unusual pain or calf pain -Increased vaginal bleeding -Painful or difficulty urinating -Feelings of extreme sadness or anxiety after 2 weeks Goals to Promote Your Health * To prevent worsening of your condition and complications * To maintain your health at the optimal level Directions to Meet Your Goals Take your medications as prescribed Follow your dietary instruction Follow activity as directed Ensure plenty of rest for recovery Drink fluids for hydration Keep your appointments as scheduled Take your immunizations and boosters as scheduled If your symptoms worsen call your PCP, if no PCP go to Urgent Care Center or Emergency Room Smoking is Dangerous to Your Health. Avoid second hand smoke Call the 24-hour crisis hotline for domestic abuse at Corrine Cespedes MD R1 Nov 10, 2017 09:06
[2017-11-10] MEDS ORDERED: INFLUENZA VIRUS VACCINE (QUADRIVALENT) 0.5 ML SYR IM ONE (10:00)
== END 2017-11-10 19:28 | disposition home or self-care (01) | DRG 775 ==
LOC: HOBED 11:30 → H2EA 12:20 → H1EA 21:24
PROVIDERS: ADMIT Obstetrics & Gynecology Maternal & Fetal Medicine; ATTEND Obstetrics & Gynecology Maternal & Fetal Medicine
PROC: 10E0XZZ Delivery of Products of Conception, External Approach (ICD-10-PCS; principal; 2017-11-08)
PROC: 0KQM0ZZ Repair Perineum Muscle, Open Approach (ICD-10-PCS; 2017-11-08)
PROC: 00HU33Z Insertion of Infusion Device into Spinal Canal, Percutaneous Approach (ICD-10-PCS; 2017-11-08)
PROC: 3E0R3BZ Introduction of Anesthetic Agent into Spinal Canal, Percutaneous Approach (ICD-10-PCS; 2017-11-08)
PROC: 10907ZC Drainage of Amniotic Fluid, Therapeutic from Products of Conception, Via Natural or Artificial Opening (ICD-10-PCS; 2017-11-08)
PROC: 0W8NXZZ Division of Female Perineum, External Approach (ICD-10-PCS; 2017-11-08)
DX: O66.0 Obstructed labor due to shoulder dystocia (principal); O70.1 Second degree perineal laceration during delivery; Z37.0 Single live birth; Z86.19 Personal history of other infectious and parasitic diseases; Z3A.39 39 weeks gestation of pregnancy; Z23 Encounter for immunization
CPT/HCPCS: 59025; 80074; 80307; 81001; 82805; 84112; 85007; 85027; 86592; 86703; 86762; 87086; 90686; 90715; G0481; J2590; J7120; Q2038